=== PATIENT | male | born 1945 | race Caucasian/White ===

== ENCOUNTER 2021-07-10 18:14 | Emergency (ER) | payer OTHER ==
[~2021-07-10] VITALS: Ht 175.3 cm; Wt 83.9 kg
[2021-07-10 18:40] LABS: HEMATOCRIT 50.2 % (42.0-52.0); HEMOGLOBIN 15.9 gm/dL (14.0-18.0); MCH 29.6 pg (26.0-34.0); MCHC 31.7 g/dL (28.0-37.0); MCV 93.2 fL (80.0-100.0); MPV 7.8 fl. (7.2-11.1); NUCLEATED RBCS 0 /100WBC; PLATELET COUNT* 166 thou/uL (150-400); RBC 5.38 mil/uL (4.50-6.00); WBC 10.9 thou/uL (4.0-11.0)
[2021-07-10 18:50] LABS: CALCIUM 9.1 mg/dL (8.5-10.1); CREATININE 1.7 mg/dL (0.6-1.3); POTASSIUM 4.9 mmol/L (3.5-5.1)
[2021-07-10 18:51] LABS: APTT 32.8 Seconds (25.0-31.3); INR 1.1; PROTIME 11.4 Seconds (9.20-11.50)
[2021-07-10 19:03] LABS: ALBUMIN 3.2 g/dL (3.4-5.0); MAGNESIUM 2.3 mg/dL (1.8-2.4); TOTAL BILIRUBIN 0.3 mg/dL (<0.1-1.0); TOTAL PROTEIN 6.8 g/dL (6.4-8.2)
[2021-07-10 19:09] LABS: ABSOLUTE EOSINOPHILS 0.1 thou/uL (0.0-0.7); ABSOLUTE LYMPHOCYTES 2.1 thou/uL (0.8-5.3); ABSOLUTE MONOCYTES 0.8 thou/uL (0.0-1.2); PLATELET ESTIMATE ADEQUATE
[2021-07-10 20:30] VITALS: BP 123/51
--- NOTE | 2021-07-11 09:43 | EKG ---
[place] [address] ELECTROCARDIOGRAM REPORT Name: BARON HOLLY Room: [facility]#: [id number] Admission: 07/10/21 Attend Phys: Discharge: 07/10/21 Date of : 41 Date of Service: 07/10/21 182 Report #: [id number] THIS REPORT FOR: //name// [facility] ED Test Date: 2021-07-10 Test Time: 18:29:59 Pat Name: BARON HOLLY Department: Room: Gender: Pr Manager: : 1945 Requested By: Kevon Dooley Order Number: [id number] MD: Alhaji Falk Measurements Intervals [place] Rate: 109 P: CT: QRS: 108 QRSD: 163 T: -39 QT: 356 QTc: 480 Interpretive Statements Atrial flutter with predominant 2:1 AV block Right bundle branch block Probable anteroseptal infarct, recent Baseline wander in lead(s) I,III,aVR,aVL Compared to ECG 12/06/2006 00:06:54 2:1 AV block now present Right bundle-branch block now present Myocardial infarct finding now present Atrial fibrillation no longer present Right-axis deviation no longer present ST (T wave) deviation no longer present Prolonged QT interval no longer present Electronically Signed On 07-11-2021 9:43:06 [employer]ATION TE[employer] by Alhaji Falk [email or web address] <ELECTRONICALLY SIGNED> By: Benny Falk MD, [facility] 07/11/2143 28 28 Benny Falk MD, [facility] /EPI
== END 2021-07-10 20:31 | disposition short-term general hospital (02) ==
LOC: M.ERS 18:14
PROVIDERS: Emergency Medicine Emergency Medical Services
DX: I46.9 Cardiac arrest, cause unspecified (principal); Z20.822 Contact with and (suspected) exposure to COVID-19; J44.9 Chronic obstructive pulmonary disease, unspecified; I50.9 Heart failure, unspecified; Z90.49 Acquired absence of other specified parts of digestive tract; Z98.890 Other specified postprocedural states